=== PATIENT | male | born 1975 | race Caucasian/White ===

== ENCOUNTER 2021-08-19 18:51 | Emergency (ER) | payer BC, SELFPAY ==
--- NOTE | ~2021-08-19 | XR_ITS ---
XR abdomen/kub 1V DATE: 08/19/2021 19:50 INDICATION: Lower abdominal pain, low back pain, abdominal bloating TECHNIQUE: Multiple supine AP views COMPARISON: None FINDINGS: Diffuse idiopathic skeletal hyperostosis of the thoracic spine. No visceromegaly is noted. No evidence of bowel obstruction. No significant abnormal calcification is noted. IMPRESSION: Nonspecific abdomen Reviewed, dictated and finalized at [facility]. Reviewed, dictated and finalized at location [facility]. IMPRESSION: Nonspecific abdomen
--- NOTE | 2021-08-19 18:54 | ED.MALEGU ---
HPI - Male Genitourinary General Chief complaint: Urogenital-Male Stated complaint: urinating frequently Time Seen by Provider: 08/19/21 18:53 Source: patient Mode of arrival: ambulatory Limitations: no limitations History of Present Illness HPI Narrative: Mr. Bess is a 46-year-old male patient presenting to the clinic today with complaints of frequent urination over this last week. He also reports some lower abdominal pain with bloating. He reports that he is also been overall feeling weak with some leg cramps. He he denies any history of diabetes. He says he has been drinking a lot so therefore he has been peeing a lot as he has been feeling dehydrated. Blood sugar was tested in the clinic and it was 156. He is concerned that he may be having muscle spasms in his back and in his legs. He reports he had 4 bowel movements yesterday without any bowel movements today. States that he feels bloated and gassy. Related Data Allergies Allergy/AdvReac Type Severity Reaction Status Date / Time No Known Allergies Allergy Verified 08/19/21 19:04 Review of Systems Review of Systems: Pertinent positives per HPI. Patient denies any fever, chills, rash, headache, visual changes, dizziness, cough, runny nose, sore throat, shortness of breath, chest pain, palpitations, nausea, vomiting, diarrhea, constipation. PMFSH Comments At the time of my signature, I reviewed and agree with the nursing past medical, surgical, social, and family history. There is no relevant family history pertinent to the patient complaint. Exam Narrative: General: Well-developed, morbidly obese, in no apparent distress. Head: Normocephalic, atraumatic. Cardio: Regular rate and rhythm, s1 and s2 normal, no murmur appreciated. Resp: Clear to auscultation bilaterally, no rhonchi, rales, wheezing or rubs. Abdomen: Firm, pliable, bowel sounds present in all quadrants, non-tender to palpation, no organomegly, no CVAT tenderness. Course Course Emergency Course: Portions of this record may have been created with voice recognition software. Level of Care: Express Care Visit Vital Signs Vital signs: Vital Signs Temperature 36.8 C 08/19/21 19:00 Pulse Rate 92 08/19/21 19:00 Respiratory Rate 18 08/19/21 19:00 Blood Pressure 145/83 H 08/19/21 19:00 Pulse Oximetry 98 08/19/21 19:00 Oxygen Delivery Room Air 08/19/21 19:00 Temperature 36.8 C 08/19/21 19:00 Pulse Rate 92 08/19/21 19:00 Respiratory Rate 18 08/19/21 19:00 Blood Pressure 145/83 H 08/19/21 19:00 Pulse Oximetry 98 08/19/21 19:00 Oxygen Delivery Room Air 08/19/21 19:00 Vital signs reviewed MDM - Male Genitourinary MDM Narrative Medical decision making narrative: At the time of visit patient is resting comfortably on the exam table. UA was negative for any signs of infection and there was no glucose in his urine. Random blood sugar was checked and it was 132 in the clinic. X-ray was obtained and was negative for any bowel obstruction, perforation, or constipation. He is requesting some muscle relaxer for his leg spasms and has back spasms. I recommend that he follow-up with his PCP as soon as possible or go to the ER for labs if his symptoms worsen and he voiced understanding of discharge instructions and agrees to the treatment plan Differential Diagnosis Differential diagnosis: Likely urinary tract infection and other (Constipation, diabetes, overactive bladder, BPH) Lab Data Labs: Lab Results 08/19/21 Range/Units 19:31 POC Capillary Glucose 132 H (65-105) mg/dl Urine Glucose Negative Reference Range: Negative Urine Bilirubin Negative Reference Range: Negative Urine Ketone Negative Reference Range: Negative Urine Specific Meherrin 1.020
[2021-08-19 19:00] VITALS: BP 145/83; PULSE 92; RESP 18; TEMP 36.8; O2SAT 98
[2021-08-19 19:34] LABS: Glucose Point of Care 132 mg/dl (65-105)
== END 2021-08-19 20:11 | disposition home or self-care (01) ==
PROVIDERS: Emergency Provider Nurse Practitioner Family; PCP Family Medicine
DX: R73.9 Hyperglycemia, unspecified (principal); R14.0 Abdominal distension (gaseous); R35.0 Frequency of micturition; M62.830 Muscle spasm of back
CPT/HCPCS: 74018; 81003; 82948; 99213; G0463

== ENCOUNTER 2023-05-27 14:56 | Emergency (ER) | payer BC, SELFPAY ==
[2023-05-27 15:11] VITALS: BP 146/82; PULSE 68; RESP 18; TEMP 36.7; O2SAT 99
--- NOTE | 2023-05-27 15:41 | ED.GENADULT ---
HPI - General Adult General Chief complaint: Abdominal Pain Stated complaint: Diarrhea/Fever/Left Flank Pain Time Seen by Provider: 05/27/23 15:21 Source: patient, RN notes reviewed and old records reviewed Mode of arrival: ambulatory Limitations: no limitations History of Present Illness HPI narrative: 48-year-old male to Express Care with complaint of diarrhea, diffuse abdominal pain, left flank pain, vomiting, reported temp up to 102.5 for 2 days. Patient endorsing urinary frequency for 2 weeks. Patient has attempted to treat at with DayQuCollin sanderso. Related Data Home Medications Medication Instructions Recorded Confirmed No Home Medications 05/27/23 05/27/23 Allergies Allergy/AdvReac Type Severity Reaction Status Date / Time No Known Allergies Allergy Verified 05/27/23 15:19 Review of Systems Review of Systems: All systems reviewed & are unremarkable except as noted in HPI and below Constitutional: Constitutional: Reports no additional constitutional complaints and Reports fever(s) ( Temp up to 102.5) Eyes: Eyes: Reports no additional eye complaints ENT: Reports system reviewed and no additional complaints, except as documented Cardiovascular: Cardiovascular: Reports no additional cardiovascular complaints, Denies chest pain and Denies dyspnea Respiratory: Respiratory: Reports no additional respiratory complaints, Denies cough and Denies dyspnea Gastrointestinal: Gastrointestinal: Reports abdominal pain ( diffuse), Reports diarrhea and Reports vomiting ( x1) Genitourinary: Genitourinary: Denies dysuria, Reports flank pain ( left), Reports urinary frequency and Denies urinary incontinence Musculoskeletal: Musculoskeletal: Reports no additional musculoskeletal complaints Neurologic: Reports system reviewed and no additional complaints, except as documented Psychiatric: Psychiatric: Reports no additional psychiatric complaints PMFSH Comments At the time of my signature, I reviewed and agree with the nursing past medical, surgical, social, and family history. There is no relevant family history pertinent to the patient complaint. Exam Const: General: cooperative, no acute distress, alert, ill appearing and well nourished Nutritional Appearance: well nourished Orientation/consciousness: patient oriented x3 Limitations: no limitations HENMT: Head: normal to inspection Ears: external ears normal Face/Nose/Sinus: Normal external nose present, Normal nares present, normal facial exam, No erythema and No edema Face and sinus: normal facial exam, no erythema and no edema Mouth: Yes Normal oral and palatal mucosa present Eyes: General: appearance normal, both eyes and all related structures Neck: Neck: normal visual inspection, full ROM and no meningeal signs Lymphatic: no lymphadenopathy noted and no lymphedema noted Chest: Chest palpation & inspection: normal inspection of the chest Resp: Effort & Inspection: normal respiratory effort and able to speak in complete sentences Auscultation: clear to auscultation bilaterally Cardio: Jugular venous distension: no JVD Rate: regular rate Rhythm: regular rhythm GI: Inspection: obesity and no visible pulsation GI Palp: Yes abdominal tenderness ( LLQ), Yes Soft to palpation, Yes Tenderness to palpation present (GI), No Guarding due to palpation present (GI) and No Rebound tenderness present Auscultation: normal bowel sounds : General: Yes CVA tenderness on the left and diffuse Back/Spine/Pelvis: Cervical Spine: cervical ROM normal Skin: General skin exam: normal color, no rashes or lesions noted and turgor normal Neuro: General: patient oriented x3, gait normal, moves all extremities and no meningeal signs Speech: normal speech Gait exam (Neuro): Normal gait present Extrem: General: normal to inspection, full ROM and capillary refill normal Psych: Appearance: grossly normal and well kempt Course Course Emergency Course: Some parts o
== END 2023-05-27 15:45 | disposition short-term general hospital (02) ==
PROVIDERS: Emergency Provider Nurse Practitioner Family; PCP Family Medicine
DX: R35.0 Frequency of micturition (principal); R10.84 Generalized abdominal pain; R19.7 Diarrhea, unspecified
CPT/HCPCS: 81003; 99212; G0463

== ENCOUNTER 2023-05-27 16:29 | Emergency (ER) | payer BC, SELFPAY ==
[2023-05-27] VITALS (11 sets, daily range): BP systolic 144–156; BP diastolic 76–88; PULSE 62–77; RESP 17–27; TEMP 36.2; O2SAT 98–100
--- NOTE | ~2023-05-27 | CT_ITS ---
EXAMINATION: CT abdomen pelvis w con DATE: 05/27/2023 20:19 INDICATION: abdominal pain TECHNIQUE: Computed tomography (CT) of the abdomen and pelvis was performed with 100 mL Omnipaque-350 intravenous contrast. Automated exposure control and iterative reconstruction technique were employe d. The dose-length product was 2307.00 mGy-cm. COMPARISON: None. FINDINGS: Lower thorax: Unremarkable Liver: Normal. Biliary/Gallbladder: Gallbladder is normal. No bile duct dilation. Pancreas: No mass or duct dilation. Spleen: Normal. Adrenals:No mass. Kidneys: No suspicious mass, obstructing stone, or hydronephrosis. GI tract: No small or large bowel dilation. Normal appendix. Mesentery/Peritoneum: No ascites, mass, or free air. Retroperitoneum: No mass. Pelvis: Pelvic organs are within normal limits. Soft Tissues: Moderate uncomplicated appearing bilateral fat-containing inguinal hernias tiny uncompl icated fat-containing umbilical hernia. Bones: No acute osseous finding. Multilevel mild degenerative disc disease. Multilevel moderate face t arthropathy. Severe central canal narrowing at L3-4. IMPRESSION: No acute abdominopelvic process detected. Severe central canal stenosis at L3-4 secondary to degenerative disc and facet changes. Reviewed, dictated and finalized at location [facility].
[2023-05-27] MEDS: SODIUM CHLORIDE 0.9% IV 1,000 ML 999 ML IV CONT (19:23)
--- NOTE | 2023-05-27 19:25 | ED.GENADULT ---
HPI - General Adult General Chief complaint: Abdominal Pain Stated complaint: abd pain Time Seen by Provider: 05/27/23 19:01 History of Present Illness HPI narrative: Is a 48-year-old gentleman who presents emergency department with chief complaint of abdominal pain and diarrhea. Patient reports last couple days he has been having cramping like sensation worse in the left side of his abdomen. The patient reports he has had multiple bouts of diarrhea reports no vomiting reports that a low-grade fever at home. The patient reports no prior intra-abdominal surgeries Related Data Allergies Allergy/AdvReac Type Severity Reaction Status Date / Time No Known Allergies Allergy Verified 05/27/23 16:47 Review of Systems Review of Systems: A 10 system review of systems was completed on the patient and is negative except for what is stated in the HPI. Nursing and ancillary documentation was reviewed. Exam Narrative: GENERAL: Well-appearing, well-nourished, and in no acute distress. HEAD: Normocephalic, atraumatic. EYES: PERRLA and EOMI. ENT: Nares clear, no rhinorrhea or epistaxis. Mucous membranes moist. NECK: Supple. CHEST: Clear to auscultation. No respiratory distress. HEART: Regular rate and rhythm. No murmur heard. Normal peripheral pulses. ABDOMEN: Soft, tenderness palpation left lower quadrant, nondistended, normal active bowel sounds. EXTREMITIES: Normal range of motion. No edema. SKIN: Warm, dry, no rash. NEURO: No focal deficits. Alert and oriented x3. PSYCH: Normal mood and affect. Course Vital Signs Vital signs: Vital Signs Temperature 36.2 C L 05/27/23 16:45 Pulse Rate 71 05/27/23 16:45 Respiratory Rate 18 05/27/23 16:45 Blood Pressure 156/88 H 05/27/23 16:45 Pulse Oximetry 100 05/27/23 16:45 Oxygen Delivery Room Air 05/27/23 16:45 Temperature 36.2 C L 05/27/23 16:45 Pulse Rate 67 05/27/23 19:32 Respiratory Rate 18 05/27/23 19:32 Blood Pressure 148/82 H 05/27/23 19:32 Pulse Oximetry 99 05/27/23 19:32 Oxygen Delivery Room Air 05/27/23 16:45 Medical Decision Making [facility] Narrative Medical decision making narrative: differential diagnosis includes colitis, diverticulitis, infectious diarrhea, viral gastroenteritis, gastritis appendicitis, cholecystitis urinalysis was reviewed from the urgent care which showed no acute findings laboratory studies were obtained which showed a white count of 8.0 electrolytes are within normal limits bilirubin was normal AST was normal ALT was slightly elevated at [address] scan of the abdomen pelvis showed no acute intra-abdominal pathology there was evidence of central canal stenosis L3-L4 secondary degenerative disc disease and facet changes Vital Signs Vital Signs: Vital Signs Temperature 36.2 C L 05/27/23 16:45 Pulse Rate 71 05/27/23 16:45 Respiratory Rate 18 05/27/23 16:45 Blood Pressure 156/88 H 05/27/23 16:45 Pulse Oximetry 100 05/27/23 16:45 Oxygen Delivery Room Air 05/27/23 16:45 Temperature 36.2 C L 05/27/23 16:45 Pulse Rate 67 05/27/23 19:32 Respiratory Rate 18 05/27/23 19:32 Blood Pressure 148/82 H 05/27/23 19:32 Pulse Oximetry 99 05/27/23 19:32 Oxygen Delivery Room Air 05/27/23 16:45 Lab Data 05/27/23 19:22 05/27/23 19:22 Labs: Lab Results 05/27/23 05/27/23 Range/Units 19:22 19:22 WBC 8.0 (4.5-10.0) K/mm3 RBC 4.41 L (4.6-6.20) M/mm3 Hgb 13.3 L (14.0-18.0) g/dL Hct 38.6 L (42.0-52.0) % MCV 87.5 (80-100) fl MCH 30.2 (26-34) pg MCHC 34.5 (32-36) g/dl RDW 13.2 (11.5-14.5) % Plt Count 232 (150-375) k/mm3 MPV 10.0 (7.4-10.4) fl Immature Gran % (Auto) Not Reportable Neut % (Auto) Not Reportable Lymph % (Auto) Not Reportable [place] % (Auto) Not Reportable Eos % (Auto) Not Reportable Baso % (Auto) Not Reportable Lymph # (Auto) Not Report
[2023-05-27 19:32] LABS: Hematocrit 38.6 % (42.0-52.0); Hemoglobin 13.3 g/dL (14.0-18.0); Mean Corpuscular HGB Conc 34.5 g/dl (32-36); Mean Corpuscular Hemoglobin 30.2 pg (26-34); Mean Corpuscular Volume 87.5 fl (80-100); Platelet Count Result 232 k/mm3 (150-375); Red Blood Count 4.41 M/mm3 (4.6-6.20); Red Cell Distribution Width 13.2 % (11.5-14.5)
[2023-05-27 19:40] LABS: Lactic Acid Reflex 0.9 mmol/L (0.7-2.0)
[2023-05-27 19:41] LABS: Alanine Aminotransferase 56 U/L (6-50); Albumin Level 3.7 g/dL (3.5-5.1); Alkaline Phosphatase 117 U/L (38-126); Anion Gap 6 mmol/L (8-16); Aspartate Amino Transferase 49 U/L (17-59); Bilirubin,Total 0.9 mg/dL (0.2-1.3); Blood Urea Nitrogen 8 mg/dL (9-20); Calcium 8.7 mg/dL (8.4-10.2); Carbon Dioxide 28 mmol/L (22-30); Chloride 105 mmol/L (98-107); Estimated CRCL calculation 160 ml/min; Estimated Glomerular Filt Rate > 60; Glucose 89 mg/dL (65-110); Lipase 63 U/L (23-300); Potassium 3.7 mmol/L (3.4-5.0); Sodium 139 mmol/L (137-145)
[2023-05-27 19:55] LABS: Eosinophils Absolute Manual 0.16 K/mm3 (0.02-0.50); Eosinophils Percent Manual 2 % (0-4); Lymphocytes Absolute Manual 3.12 K/mm3 (1.1-4.5); Monocytes Absolute Manual 0.56 K/mm3 (0.1-0.90); Monocytes Percent Manual 7 % (3-9); Neutrophils Percent Manual 52 % (46-73); Total Cells Counted 100
[2023-05-27 19:56] LABS: Atypical Lymphocytes Present; Platelet Estimate Adequate (Adequate); Schistocytes None Seen
[2023-05-27 21:31] LABS: Appearance Urine Clear (Clear); Bilirubin Urine Negative (Negative); Blood Urine Negative (Negative); Color Urine Yellow (Yellow); Glucose Urine UA Negative (Negative); Ketones Urine Negative (Negative); Leukocyte Esterase Ur Negative LEU/UL (Negative); Nitrate Urine Negative (Negative); Protein Urine Negative (Negative); pH Urine 6.5 (5.0-9.0)
[2023-05-27 21:32] LABS: Add Urine Microscopic? NO; Specific Grav Ur 1.049 (1.001-1.035)
== END 2023-05-27 21:38 | disposition home or self-care (01) ==
PROVIDERS: Emergency Provider Emergency Medicine; PCP Family Medicine
DX: R10.9 Unspecified abdominal pain (principal); R19.7 Diarrhea, unspecified; M47.816 Spondylosis without myelopathy or radiculopathy, lumbar region; M48.061 Spinal stenosis, lumbar region without neurogenic claudication
CPT/HCPCS: 36415; 74177; 80053; 81003; 83605; 83690; 85025; 96360; 99284; J7030; Q9967

== ENCOUNTER 2024-06-22 12:48 | Emergency (ER) | payer BC, SELFPAY ==
--- OUTSIDE RECORDS SUMMARY | 2024-06-22 12:51 | XMS_ITS | Referral Summary ---
Author Organization [facility] Address [address] [place] [address] Care Team Providers Care Ehs Specialist Name Role Phone Scout Ralph MD Primary Care Provider [phone] Allergies No known active allergies Medications No known medications Active Problems Problem Noted Date Diagnosed Date Screening for colon cancer 08/28/2017 Overview (08/28/2017): Added automatically from request for surgery [id number] Immunizations Immunization Administration Dates Next Due Influenza, Unspecified 09/18/2023(Deferr ed: Patient Refused),11/11/2022(Deferred: Patient Refused),03/13/2021(Deferred: Patient Refused),03/13/2020(Deferred: Patient Refused),02/26/2020(Deferred: Patient Refused),03/13/2019(Deferred: Patient Refused),08/17/2018(Deferred: Patient Refused),03/27/2017(Deferred: Patient Refused),03/13/2017(Deferred: Patient Refused) Dyyno (J&J) SARS-CoV-2 Vaccination 03/16/2021 TD Preservative Free 05/10/2011 Tdap 08/17/2021 Social History Tobacco Use Types Packs/Day Years Used Date Smoking Tobacco: Never Cigarettes Smokeless Tobacco: Never Tobacco Cessation:Counseling Given: Not Answered Alcohol Use Standard Drinks/Week Comments Yes 0 (1 standard drink = 0.6 oz pur e alcohol) Occasional PHQ-2 Answer Date Recorded PHQ-2 Total Score (If total score is 3 or more points, staff should administer the PHQ-9) 0 09/18/2023 Sex and Gender Information Value Date Recorded Sex Assigned at Not on file 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 Gender Identity Not on file Sexual Orientation Not on file Last Filed Vital Signs Vital Sign Reading Time Taken Comments Blood Pressure 136/90 09/18/2023 1:18 PM CDT Pulse 83 09/18/2023 1:18 PM CDT Temperature 37 C (98.6 F) 09/18/2023 1:18 PM CDT Respiratory Rate 20 09/18/2023 1:18 PM CDT Oxygen Saturation 98% 09/18/2023 1:18 PM CDT room air Inhaled Oxygen Concentration - - Weight 171.9 kg (379 lb) 09/18/2023 1:18 PM CDT Height 180.3 cm (5' 11 ) 09/18/2023 1:18 PM CDT Body Mass Index 52.86 09/18/2023 1:18 PM CDT Plan of Treatment Not on file Procedures Procedure Name Priority Date/Time Associated Diagnosis Comments COLONOSCOPY 12/28/2021 7:51 AM CDT from Last 3 Months or Most Recently Relevant to Health Maintenance Results * COLONOSCOPY (12/28/2021 7:51 AM CDT) Anatomical Region Laterality Modality Other Narrative Procedure Note Anoop Moreno MD - 12/28/2021 7:51 AM CDT [facility] Patient Name: Angelito Bess Procedure Date: 12/28/2021 7:51 AM Date of : 1975 Admit Type: Outpatient Age: 46 Gender: Male Attending MD: Anoop Moreno M.D. Room: [facility] ENDOSCOPY ROOM 1 Note Status: Finalized Patient Profile: This is a 46 year old male. No family history ofcolon cancer. Screening colonoscopy. His mother had colon polyps Procedure: Colonoscopy Indications: Colon cancer screening in patient at [facility]: Family history of 1st-degree relative with colon polyps, This is the patient's first colonoscopy Referring MD: Scout Ralph M.D. Providers: Anoop Moreno M.D. Impression: - The entire examined colon is normal. - No specimens collected. Recommendation: - Repeat colonoscopy in 10 years for screening purposes. Medicines: Monitored Anesthesia Care Complications: No immediate complications. Estimated Blood Loss: Estimated blood loss: none. Procedure: Pre-Anesthesia Assessment: - Prior to the procedure, a History and Physicalwas performed, and patient medications and allergieswere reviewed. The patient's tolerance of previous anesthesia was also reviewed. The risks andbenefits of the procedure and the sedation options and risks were discussed with the patient. All questions were answered, and informed consent was obtained. Prior Anticoagulants: The patient has taken noanticoagulant or antiplatelet agents. ASA Grade Assessment: III -A patient with severe systemic disease. Afterreviewing the risks and benefits, the patient was deemed in satisfactory condition to undergo the procedure. The benefits, risks and alternatives of theprocedure and sedation were discussed and informed consentwas obtained. All questions were answered. Please referto the signed informed consent document in the medical record. The bowel preparation used was Miralax and bisacodyl tablets via split dose instruction. The scope was passed under direct vision. The Pediatric Colonoscope [id number]-[id number] was introducedthrough the anus and advanced to the the cecum, identifiedby appendiceal orifice and ileocecal valve. Thequality of the bowel preparation was good. Bowel prep was administered using a split dose. Findings: The perianal and digital rectal examinations were normal. The cecum appeared normal. The colon (entire examined portion) appeared normal. No polyps and no mass lesions noted. The rectum appeared normal. Electronically signed by Anoop Moreno M.D. Anoop Moreno M.D. 12/28/2021 9:09:10 AM Number of Addenda: 0 Note Initiated On: 12/28/2021 7:51 AM Procedure Code(s): --- Professional --- 50055, Colonoscopy, flexible; diagnostic, including collection of specimen(s) by brushing or washing, when performed (separateprocedure) Diagnosis Code(s): --- Professional --- Z83.71, Family history of colonic polyps CPT copyright 2020 [employer]. All rights reserved. The codes documented in this report are preliminary and upon fagoter reviewmay be revised to meet current compliance requirements. Recognized by the [place] [employer] for promoting quality in endoscopy Anoop Moreno MD ENDOSCOPY PROCEDURES Final Result from Last 3 Months or Most Recently Relevant to Health Maintenance Insurance [facility] ACCESS CHOICE Advance Directives For more information, please contact: [phone] * Full Code (Latest Code Status on File) Date Activated Date Inactivated Comments 12/28/2021 8:13 AM 12/28/2021 1:43 PM * Full Code Date Activated Date Inactivated Comments 12/28/2021 8:12 AM 12/28/2021 8:13 AM Care Teams Ehs Specialist Relationship Specialty Start Date End Date Scout Ralph MD [address] [place] [address] PCP - General 10/19/06
--- OUTSIDE RECORDS SUMMARY | 2024-06-22 12:51 | XMS_ITS | Clinical Summary ---
Author Organization [facility] Address [address] [place] [address] Care Team Providers Care Drug Abuse Technician Name Role Phone Scout Ralph MD Primary Care Provider [phone] Source Comments [facility],non-owned Affiliates and Associated Physician Practices is amultiple site organization consisting of ambulatory clinics and hospital sitesin [place], [place], [place] and [place]. This disclosure is being madepursuant to the Care Everywhere program and may not contain all information available regarding this patient. Last updated 17.[employer] [facility] Allergies No known active allergies Medications * Be aware that medications may not be up to date on this document. Alwaysverify current medications with the patient. 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 Gender Identity Not on file Sexual Orientation Not on file Last Filed Vital Signs Vital Sign Reading Time Taken Comments Blood Pressure 138/92 09/19/2019 2:14 PM CDT Pulse 77 09/19/2019 2:14 PM CDT Temperature 37.2 C (99 F) 09/19/2019 2:14 PM CDT Respiratory Rate 18 09/19/2019 2:14 PM CDT Oxygen Saturation 97% 09/19/2019 2:14 PM CDT Inhaled Oxygen Concentration - - Weight 163.3 kg (360 lb) 09/19/2019 2:14 PM CDT Height 182.9 cm (6') 09/19/2019 2:14 PM CDT Body Mass Index 48.82 09/19/2019 2:14 PM CDT Plan of Treatment Health Maintenance Due Date Last Done Comments COLOGUARD (AGES 45-75) - COL ON CA SCREENING 1975 COLON MONITORING 1975 COLONOSCOPY - COLON CA SCREENING 1977 CT COLONOGRAPHY - COLON CA SCREENING 1975 Colorectal Cancer Screening 1975 FIT - COLON CA SCREENING 1975 FLEX SIG - COLON CA SCREENING 1975 LIPID TESTING 1975 HIV SCREENING 02/02/1992 HEPATITIS C SCREENING 01/28/1995 DTAP/TDAP/TD VACCINES (1 - Tdap) 02/02/1996 HEPATITIS B VACCINE (1 of 3 - 19+ 3-dose series) 02/02/1996 SCREENING FOR DIABETES 09/19/2019 COVID-19 VACCINE (1 - 2023-2 5 season) 2023 DEPRESSION SCREENING 03/13/2024 INFLUENZA VACCINE (Season Ended) 2024 ZOSTER VACCINE (1 of 2) 2027 HIB VACCINE Aged Out No longer eligi ble based on patient's age to complete this topic HPV VACCINE Aged Out No longer eligi ble based on patient's age to complete this topic MENINGOCOCCAL (Group B) VACC INE SHARED DECISION-MAKING Aged Out No longer eligibl e based on patient's age to complete this topic MENINGOCOCCAL GROUPS A/C/Y/W VACCINE Aged Out No longer eligible b ased on patient's age to complete this topic PNEUMOCOCCAL VACCINE Aged Out No long er eligible based on patient's age to complete this topic Insurance ANTH Care Teams Drug Abuse Technician Relationship Specialty Start Date End Date Scout Ralph MD [address] [place] [address] PCP - General Internal Medicine 04/20/17
--- OUTSIDE RECORDS SUMMARY | 2024-06-22 12:51 | XMS_ITS | Clinical Summary ---
Author Organization [facility] Address [address] [place] [address] Care Team Providers Care Welfare Case Worker Name Role Phone Scout Ralph MD Primary Care Provider [phone] Allergies No known active allergies Medications No known medications Active Problems Problem Noted Date Diagnosed Date Screening for colon cancer 08/28/2017 Overview (08/28/2017): Added automatically from request for surgery [id number] Immunizations Immunization Administration Dates Next Due Influenza, Unspecified 09/18/2023(Deferr ed: Patient Refused),11/11/2022(Deferred: Patient Refused),03/13/2021(Deferred: Patient Refused),03/13/2020(Deferred: Patient Refused),02/26/2020(Deferred: Patient Refused),03/13/2019(Deferred: Patient Refused),08/17/2018(Deferred: Patient Refused),03/27/2017(Deferred: Patient Refused),03/13/2017(Deferred: Patient Refused) [employer] ([employer]) SARS-CoV-2 Vaccination 03/16/2021 TD Preservative Free 05/10/2011 Tdap 08/17/2021 Surgical History Surgery Date Site/Laterality Comments OTHER SURGICAL HISTORY left thumb artificial joint COLONOSCOPY 12/28/2021 JOINT REPLACEMENT Family History Medical History Relation Name Comments Diabetes type II Father Diabetes -T ype II; Other Father Alive and well; Colon polyps Mother Tammy pre cancer cell s noted Heart disease Mother Tammy Relation Name Status Comments Father Alive Mother Tammy (Age 65) Heart tripp ck Social History Tobacco Use Types Packs/Day Years [...] on file 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 Gender Identity Not on file Sexual Orientation Not on file Obstetrics History Last Filed Vital Signs Vital Sign Reading [...] 09/18/2023 1:18 PM CDT Plan of Treatment Health Maintenance Due Date Last Done Comments Hepatitis C Screening 1977 Hepatitis B Screening 1995 Covid-19 Vaccine ( season) 2023 03/16/2021 Influenza Vaccine (#1) 2023 Depression Screening 09/17/2024 09/18/2023, 08/17/2021, 02/26/2020, Additional history exists Regular Well Visit/Exam 18-64 09/17/2024 09/18/2023, 08/17/2021, 08/24/2016 DTaP/Tdap/Td Vaccine (2 - Td or Tdap) 08/18/2031 08/17/2021, 05/10/2011 Colon Cancer Screening-Colonoscopy 12/29/2031 12/28/2021 Pneumococcal vaccine <65 Aged Out No longer eligible based on patient's age to complete this topic Procedures Procedure Name Priority Date/Time Associated Diagnosis [...] Male Attending MD: Anoop Moreno M.D. Room: [facility] 1 Note Status: Finalized Patient Profile: This is a 46 year old male. No family history ofcolon cancer. Screening colonoscopy. His mother had colon polyps Procedure: Colonoscopy Indications: [facility] Family history of 1st-degree relative with colon [...] under direct vision. The Pediatric Colonoscope PCF-H190L [id number] was introducedthrough the anus and advanced to [...] 7:51 AM Procedure Code(s): --- Professional --- 50105, Colonoscopy, flexible; diagnostic, including collection of specimen(s) by brushing or washing, when performed (separateprocedure) Diagnosis Code(s): --- Professional --- Z83.71, Family history of colonic polyps CPT copyright 2020 [employer]. All rights reserved. The codes documented in this report are preliminary and upon area secretary reviewmay be revised to meet current compliance requirements. Recognized by the [employer] for promoting quality in endoscopy Anoop Moreno MD ENDOSCOPY PROCEDURES Final Result from Last 3 Months or Most Recently Relevant to Health Maintenance Insurance BLUE ACC CHOICE OOS ANTHEM ACCESS CHOICE Advance Directives For more information, please contact: [phone] * Full Code (Latest Code Status on File) Date Activated Date Inactivated Comments 12/28/2021 8:13 AM 12/28/2021 1:43 PM * Full Code Date Activated Date Inactivated Comments 12/28/2021 8:12 AM 12/28/2021 8:13 AM Care Teams Welfare Case Worker Relationship Specialty Start Date End Date Scout Ralph MD [address] [place] [address] PCP - General 10/19/06
[2024-06-22 12:53] VITALS: BP 131/75; PULSE 97; RESP 18; TEMP 36.8; O2SAT 97
--- NOTE | 2024-06-22 13:44 | ED.GENADULT ---
HPI - General Adult General Chief complaint: Skin/Abscess/Foreign Body Stated complaint: Fever Source: patient Mode of arrival: ambulatory Limitations: no limitations History of Present Illness HPI narrative: Patient presents for evaluation of scalp redness. He indicates he was working overnight and developed some chills at 0100 this morning. He took some ibuprofen and his symptoms improved. He came home from work this morning around 0730. His told him that his scalp had a reddened appearance. He reports postauricular lymphadenopathy. He noted a temperature of 103.0? around 1030 this morning. He took ibuprofen and his temperature improved. He does shave his head and also uses clippers. Denies any other infectious symptoms including but not limited to sore throat, otalgia, cough, shortness of breath, nausea, vomiting, diarrhea. Related Data Allergies Allergy/AdvReac Type Severity Reaction Status Date / Time No Known Allergies Allergy Verified 06/22/24 13:12 Review of Systems Review of Systems: CONSTITUTIONAL: Reports fever and chills. EYES: Denies visual changes, redness, or discharge. ENT: Denies rhinorrhea, congestion, sore throat, or otalgia. CARDIOVASCULAR: Denies chest pain, palpitations, or edema. RESPIRATORY: Denies cough or dyspnea. GASTROINTESTINAL: Denies abdominal pain, nausea, vomiting, or diarrhea. GENITOURINARY: Denies dysuria or hematuria. SKIN: Reports redness to the scalp MUSCULOSKELETAL: Denies back pain, joint pain, or myalgia. NEUROLOGIC: Denies headache, numbness, dizziness, or weakness. PSYCHIATRIC: Denies anxiety or depression. [facility] Past Medical History Medical History No pertinent past medical history Surgical History Surgical History No pertinent past surgical history Family History Family History Mother Family history non-contributory Social History Social History Alcohol intake: current Alcohol use details: occasional social Substance use: never Living arrangements: with family Gender identity (if verbalized by the patient): Male Sexual Orientation (if Verbalized by the Patient): Straight or Heterosexual Spiritual care concerns: No Exam Narrative: GENERAL: Well-appearing, well-nourished, and in no acute distress. HEAD: Normocephalic, atraumatic. EYES: PERRLA and EOMI. ENT: Nares clear, no rhinorrhea or epistaxis. Mucous membranes moist. Oropharynx without tonsillar hypertrophy exudate or other lesions. Bilateral TMs pearly bautista nonbulging NECK: Supple. No adenopathy or masses. No carotid bruits or JVD CHEST: Clear to auscultation. No respiratory distress. No wheezes rales or rhonchi HEART: Regular rate and rhythm. No murmur heard. Normal peripheral pulses. ABDOMEN: Soft, nontender, nondistended, normal active bowel sounds. EXTREMITIES: Normal range of motion. No edema. SKIN: There are a few scattered abrasions to the frontal aspect of the scalp and to the right postauricular region. There is an area of erythema that extends across most of the frontal and bilateral parietal regions of the scalp. There is erythema to right postauricular region. Warm, dry, no rash. LYMPHATICS: There is bilateral postauricular lymphadenopathy present NEURO: No focal deficits. Alert and oriented x3. PSYCH: Normal mood and affect. Course Course Emergency Course: This is a 49 yr old male who presented for evaluation of redness to the scalp. This appears to be a cellulitis secondary to folliculitis. Will treat with Bactrim and Keflex. In the event that he has persistent fever or symptoms that are worsening, he should go to the emergency department. Patient in agreement with plan of care. Level of Care: Express Care Visit Vital Signs Vital signs: Vital Signs Temperature 36.8 C 06/22/24 12:53 Pulse Rate 97 06/22/24 12:53 Respiratory Rate 18 06/22/24 12:53 Blood Pressure 131/75 06/22/24 12:53 Pulse Oximetry 97 06/22/24 12:53 Oxygen Delivery Room Air 06/22/24 12:53 Temperature 36.8 C 06/22/24 12:53 Pulse Rate 97 06/22/24 12:53 Respiratory Rate 18 06/22/24 12:53 Blood Pressure 131/75 06/22/24 12:53 Pulse Oximetry 97 06/22/24 12:53 Oxygen Delivery Room Air 06/22/24 12:53 Medical Decision Making Vital Signs Vital Signs: Vital Signs Temperature 36.8 C 06/22/24 12:53 Pulse Rate 97 06/22/24 12:53 Respiratory Rate 18 06/22/24 12:53 Blood Pressure 131/75 06/22/24 12:53 Pulse Oximetry 97 06/22/24 12:53 Oxygen Delivery Room Air 06/22/24 12:53 Temperature 36.8 C 06/22/24 12:53 Pulse Rate 97 06/22/24 12:53 Respiratory Rate 18 06/22/24 12:53 Blood Pressure 131/75 06/22/24 12:53 Pulse Oximetry 97 06/22/24 12:53 Oxygen Delivery Room Air 06/22/24 12:53 Discharge Plan Discharge Clinical Impression: Cellulitis of scalp, Folliculitis Patient Disposition: Home Condition: Stable Instructions: Antibiotic Form, Cellulitis (ED), Folliculitis (ED) Patient Language: French Prescriptions: New sulfamethoxazole-trimethoprim [Bactrim DS] 800-160 mg tablet 1 tablet PO Q12H Qty: 20 0RF cephalexin 500 mg capsule 500 mg PO Q6H Qty: 40 0RF Follow-up/Referrals: Harms,Scout Flores M.D. [Primary Care Provider] - Time of Disposition: 13:40
== END 2024-06-22 13:42 | disposition home or self-care (01) ==
PROVIDERS: Emergency Provider Nurse Practitioner; PCP Family Medicine
DX: L03.811 Cellulitis of head [any part, except face] (principal); L73.9 Follicular disorder, unspecified
CPT/HCPCS: 99213; G0463